=== PATIENT | male | born 1960 | race Caucasian/White ===

== ENCOUNTER 2017-03-08 05:58 | Day surgery (SDC) | payer OTHER ==
[2017-03-06 09:29] LABS: HEMATOCRIT 50.9 % (39.2-51.8); HEMOGLOBIN 17.6 g/dL (13.7-18.0); WHITE BLOOD COUNT 11.1 x10^3/uL (3.4-10)
[2017-03-06 09:42] LABS: ASPARTATE AMINO TRANSFERASE 17 U/L (15-37); BLOOD UREA NITROGEN 8 mg/dL (7-18)
[~2017-03-08] VITALS: Ht 177.8 cm; Wt 101.9 kg
[~2017-03-08 05:58] MED LIST: CETI10CA PO; DIPH25CA61 PO; ENOX60SY4 SC; HYDR-3245 PO; LISI-167 PO; WARF6TAB7 PO; WARF7.5T6 PO
[2017-03-08] MEDS ORDERED: EPINEPHRINE 1 MG/ML, 1ML ONE (06:11)
[2017-03-08] MEDS ORDERED: LIDOCAINE/PF 1%, 30ML ONE (06:11)
[2017-03-08] MEDS ORDERED: BUPIVACAINE/PF 0.5% ONE (06:11)
[2017-03-08 06:21] VITALS: BP 126/82
[2017-03-08] MEDS ORDERED: LIDOCAINE 1%, 2ML ONE (06:29)
[2017-03-08] MEDS ORDERED: BACITRACIN 50,000 UNIT ONE (06:39)
[2017-03-08] MEDS ORDERED: LACTATED RINGERS 1,000 ML IV SCH (06:41)
[2017-03-08] MEDS ORDERED: PROPOFOL 10 MG/ML, 20ML ONE ×2 (06:49→06:50)
[2017-03-08] MEDS ORDERED: SUCCINYLCHOLINE 20 MG/ML, 10ML ONE (06:50)
[2017-03-08] MEDS ORDERED: FENTANYL PF 100 MCG/2ML ONE ×2 (06:52→08:36)
[2017-03-08] MEDS ORDERED: LIDOCAINE 1%, 2ML SQ PRN (07:00)
[2017-03-08] MEDS ORDERED: MIDAZOLAM 1 MG/ML, 2ML ONE (07:06)
[2017-03-08] MEDS ORDERED: CEFAZOLIN 1,000 MG ONE ×2 (07:06)
[2017-03-08] MEDS ORDERED: ONDANSETRON 2MG/ML, 2ML ONE (07:12)
[2017-03-08] MEDS ORDERED: DEXAMETHASONE 4 MG/ML, 1ML ONE ×2 (07:12)
[2017-03-08] MEDS ORDERED: PHENYLEPHRINE 10 MG/ML ONE (07:14)
[2017-03-08] MEDS ORDERED: hydrALAzine 20 MG/ML, 1ML IV PRN (08:00)
[2017-03-08] MEDS ORDERED: ACETAMINOPHEN 325 MG TABLET PO PRN (08:00)
[2017-03-08] MEDS ORDERED: PROMETHAZINE 25 MG/ML, 1ML IV PRN (08:00)
[2017-03-08] MEDS ORDERED: OXYcodone 5 MG/5 ML ORAL.SOL UDC PO PRN (08:00)
[2017-03-08] MEDS ORDERED: HYDROmorphone 1 MG/ML, 1ML IV PRN (08:00)
[2017-03-08] MEDS ORDERED: METOPROLOL 1 MG/ML, 5ML IV PRN (08:00)
[2017-03-08] MEDS ORDERED: FENTANYL PF 100 MCG/2ML IV PRN (08:00)
[2017-03-08] MEDS ORDERED: METOCLOPRAMIDE 5 MG/ML, 2ML IV PRN (08:00)
[2017-03-08] MEDS ORDERED: LABETALOL 5MG/ML, 20ML IV PRN (08:00)
[2017-03-08] MEDS ORDERED: EPHEDRINE 50 MG/ML, 1ML IVPush PRN (08:00)
[2017-03-08] MEDS ORDERED: ONDANSETRON 2MG/ML, 2ML IVPush PRN (08:00)
[2017-03-08] MEDS ORDERED: ALBUTEROL SULFATE 2.5 MG/3 ML NPPB PRN (08:00)
[2017-03-08] MEDS ORDERED: MEPERIDINE/PF 25MG/0.5ML IVPush PRN (08:00)
[2017-03-08] MEDS ORDERED: LORazepam 2 MG/ML, 1ML IVPush PRN (08:00)
[2017-03-08] MEDS ORDERED: HYDROcodone/APAP 7.5-325MG/15ML UDC PO PRN (08:00)
[2017-03-08] MEDS ORDERED: ACETAMINOPHEN 650 MG/20.3 ML UDC ONE (08:36)
[2017-03-08] MEDS ORDERED: OXYcodone 5 MG/5 ML ORAL.SOL UDC ONE (08:37)
== END 2017-03-08 10:45 ==
LOC: OUT 05:58 → EDSTATUS 07:00 → OUT 10:45
PROVIDERS: ATTEND Podiatrist Foot & Ankle Surgery
DX: M20.21 Hallux rigidus, right foot (principal); I10 Essential (primary) hypertension; Z86.718 Personal history of other venous thrombosis and embolism
CPT/HCPCS: 28291; 36415; 80053; 85025; 85610; 85730; C1776; J0171; J0330; J0690; J1100; J2250; J2370; J2405; J2704; J3490; J7120; J3010